=== PATIENT | male | born 1970 | race Two or more races ===

== ENCOUNTER 2024-07-17 12:22 | Emergency (ER) | payer OTHER ==
[~2024-07-17] VITALS: Ht 172.7 cm; Wt 69.3 kg
[2024-07-17 13:26] VITALS: BP 118/76; TEMP 97.8
--- NOTE | 2024-07-17 13:35 | DVH ---
EXAM: XY L SHOULDER 2+ VIEW XRAY CLINICAL HISTORY: pain COMPARISON: None TECHNIQUE: XY L SHOULDER 2+ VIEW XRAY Findings/Impression: 3 views of the left shoulder. There is no evidence of an acute fracture, dislocation, blastic, or lytic lesions. No radiopaque foreign bodies. No joint effusion or superficial soft tissue abnormalities.
--- NOTE | 2024-07-17 14:12 | ED.PDOC ---
History of Present Illness HPI Comments This is a 53-year-old male who comes in with chief complaint of left shoulder pain for approximately two weeks. 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 The patient states that he has been stretching and now he feels like he is having some mild numbness to the arms. The patient denies any vomiting or diarrhea. The symptoms seemed to have worsened so he came to the emergency department's for evaluation. Chief Complaint: Upper Extremity Time Seen by MD: 12:56 Primary Care Provider: adi Reviewed Notes: Nurses Notes, Medications, Allergies (No allergies to medications) Allergies: Coded Allergies: NO KNOWN ALLERGIES (Unverified , 07/17/24) Information Source: Patient, Spouse Mode of Arrival: Ambulatory Severity: Moderate Timing: Days Duration: Since onset Prehospital treatment: None Associated signs and symptoms Left shoulder pain Past Medical History PAST MEDICAL HISTORY: Gallstones Surgical History: Denies all surgeries Family History Family History: Family hx of DM Social History Smoker: Non-Smoker Alcohol: Occasionally Drugs: Denies Drug Use Lives In: Home Constitutional: denies: chills, diaphoresis, fatigue, fever, malaise, sweats, weakness, others EENTM: denies: blurred vision, double vision, ear bleeding, ear discharge, ear drainage, ear pain, ear ringing, eye pain, eye redness, hearing loss, mouth pain, mouth swelling, nasal discharge, nose bleeding, nose congestion, nose pain, photophobia, tearing, throat pain, throat swelling, voice changes, others Respiratory: denies: cough, hemoptysis, orthopnea, SOB at rest, shortness of breath, SOB with excertion, stridor, wheezing, others Cardiovascular: denies: chest pain, dizzy spells, diaphoresis, Dyspnea on exertion, edema, irregular heart beat, left arm pain, lightheadedness, pal pitations, PND, syncope, others Gastrointestinal: denies: abdomen distended, abdominal pain, blood streaked bowels, constipated, diarrhea, dysphagia, difficulty swallowing, hematemesis, melena, nausea, poor appetite, poor fluid intake, rectal bleeding, rectal pain, vomiting, others Genitourinary: denies: burning, dysuria, flank pain, frequency, hematuria, incontinence, penile discharge, penile sore, pain, testicle pain, testicle swelling, urgency, others Neurological: denies: dizziness, fainting, headache, left sided numbness, left sided weakness, numbness, paresthesia, pre-existing deficit, right sided numbness, right sided weakness, seizure, speech problems, tingling, tremors, weakness, others Musculoskeletal: reports: others (Left shoulder pain); denies: back pain, gout, joint pain, joint swelling, muscle pain, muscle stiffness, neck pain Integumetry: denies: bruises, change in color, change in hair/nails, dryness, laceration, lesions, lumps, rash, wounds, others Allergic/Immunocompromised: denies: Difficulty Healing, Frequent Infections, Hives, Itching, others Hematologic/Lymphatic: denies: anemia, blood clots, easy bleeding, easy bruising, swollen glands, others Endocrine: denies: excessive hunger, excessive sweating, excessive thirst, excessive urination, flushing, intolerance to cold, intolerance to heat, unexp lained weight gain, unexplained weight loss, others Psychiatric: denies: anxiety, bipolar disorder, depression, hopeless, panic disorder, schizophrenia, sleepless, suicidal, others Physical Exam General Appearance: No Apparent Distress HEENT: Normal ENT Inspection, Pharynx Normal, TMs Normal Neck: Full Range of Motion, Non-Tender, Normal, Normal Inspection Respiratory: Chest Non-Tender, Lungs Clear, No Accessory Muscle Use, No Respiratory Distress, Normal Breath Sounds Cardiovascular: No Edema, No JVD, No Murmur, No Gallop, Normal Peripheral Pulses, Regular Rate/Rhythm Breast Exam: Deferred Gastrointestinal: No Organomegaly, Non Tender, No Pulsatile Mass, Normal Bowel Sounds, Soft Genitalia: Deferred Pelvic: Deferred Rectal: Deferred Extremities: No calf tenderness, Normal capillary refill, No pedal edema Musculoskeletal : Location: Left Extremity Location: Shoulder Apperance: Limited ROM, Tenderness: Mild 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 Was a procedure done?: No Differential Dx Considerations may include: Fracture, strain, contusion X-Ray, Labs, Meds, VS Vital Signs Date Time Temp Pulse Resp B/P (MAP) Pulse Ox O2 Delivery O2 Flow Rate FiO2 07/17/24 13:26 89 18 98 Room Air 07/17/24 13:26 97.8 89 18 118/76 (90) 95 97.8 07/17/24 12:45 98.9 88 18 107/69 (82) 98 98.9 X-ray of the left shoulder is negative The patient was given discharged and told to follow up with his primary care doctor The patient will return to the emergency department's condition worsens. Images Reviewed?: Images reviewed and evaluated by me Time of 1ST Reevaluation: 14:17 Reevaluation 1ST: Improved Patient Education/Counseling: Diagnosis, Treatment, Prognosis, Need For Follow Up Family Education/Counseling: No Family Present Departure 1 Departure Time of Disposition: 14:17 Impression: Primary Impression: Left shoulder strain Qualified Codes: S46.912A - Strain of unspecified muscle, fascia and tendon at shoulder and upper arm level, left arm, initial encounter Disposition: HOME / SELF CARE / HOMELESS Condition: Fair Discharged With: Self Critical Care Note Critical Care Time?: No Stability Stability form required: No Heart Score Heart Score: Heart Score Response (Comments) Value History N/A 0 EKG N/A 0 Age N/A 0 Risk Factors N/A 0 Troponin N/A 0 Total 0 BARBARA MARQUEZ MD Jul 17, 2024 14:12
[2024-07-17 14:24] VITALS: PULSE 89; RESP 18; O2SAT 98
== END 2024-07-17 14:29 | disposition home or self-care (01) ==
LOC: ER 12:22
DX: S46.812A Strain of other muscles, fascia and tendons at shoulder and upper arm level, left arm, initial encounter (principal); X58.XXXA Exposure to other specified factors, initial encounter; Y93.89 Activity, other specified; Y92.89 Other specified places as the place of occurrence of the external cause; Y99.8 Other external cause status
CPT/HCPCS: 73030

== ENCOUNTER 2024-11-16 06:12 | Inpatient (IN) | payer MEDICAID ==
[2024-11-15 10:23] LABS: Hematocrit 43.7 % (41.0-53.0); Hemoglobin 14.9 g/dL (13.5-17.5); Mean Corpuscular Hemoglobin 31.1 pg (28.0-32.0); Mean Corpuscular Volume 90.9 fL (80.0-100.0); Nucleated Red Blood Cells % 0.1 %
[2024-11-15 10:31] LABS: Urine Protein, UAD TRACE (Negative)
[2024-11-15 10:36] LABS: INR 0.93 (0.9-1.15); Partial Thromboplastin Time 26.9 SEC (24.5-34.5); Prothrombin Time 9.9 sec (9.3-11.8)
[2024-11-15 11:11] LABS: Alanine Aminotransferase 14 U/L (7-40); Albumin 4.6 g/dL (3.2-4.8); Alkaline Phosphatase 47 U/L (46-116); Anion Gap 7 (5-15); BUN/Creatinine Ratio 13.1 (10.0-20.0); Bilirubin, Total 0.6 mg/dL (0.2-1.0); Blood Urea Nitrogen 14 mg/dL (9-23); Calcium 9.6 mg/dL (8.7-10.4); Carbon Dioxide 29 mmol/L (20-31); Chloride 106 mmol/L (98-107); Potassium 4.5 mmol/L (3.5-5.1); Sodium 142 mmol/L (136-145); Total Protein 7.0 g/dL (5.7-8.2)
[2024-11-15 11:14] LABS: Glucose 192 mg/dL (74-106)
[~2024-11-16] VITALS: Ht 172.7 cm; Wt 76.1 kg
[2024-11-16] MEDS: ceFAZolin 2 GM/D5W50ml 50 ML IV ONE (06:11)
[~2024-11-16 06:12] MED LIST: BACL20TA PO; CHOL20004 PO; FAMO-68 PO; METF-371 PO; PREG50CA PO; SIMV10TA20 PO; TRAM50TA2 PO; TRAZ-228 PO
[2024-11-16] MEDS ORDERED: fentaNYL CITRATE 100 MCG/2 ML VL ONE (07:19)
[2024-11-16] MEDS ORDERED: MIDAZOLAM HCL 2MG/2ML 2ml VIAL (1mg/ml) ONE (07:19)
[2024-11-16] MEDS ORDERED: PROPOFOL 10 MG/ML 20 ML IV ONE (07:20)
[2024-11-16] MEDS ORDERED: HYDROmorphone HCL 2 MG/ML VL/or syr ONE (07:20)
[2024-11-16] MEDS ORDERED: SUGAMMADEX 200mg/2ml Vial (100MG/ML) IV ONE (07:55)
[2024-11-16] MEDS ORDERED: ONDANSETRON HCL 4 MG/2 ML VIAL ONE (07:55)
[2024-11-16] MEDS ORDERED: MORPHINE SULFATE 4 MG/ML SYR/VIAL IV PRN (08:00)
[2024-11-16] MEDS: BUPIVACAINE 0.5% P/F INJ 10 ML VIAL ONE (08:00)
[2024-11-16] MEDS ORDERED: hydrALAZINE HCL 20 MG/ML VL IV PRN (08:00)
[2024-11-16] MEDS ORDERED: MIDAZOLAM HCL 2MG/2ML 2ml VIAL (1mg/ml) IV PRN (08:00)
[2024-11-16] MEDS: LIDOCAINE W/ EPINEPHRINE 1% 20ML VIAL ONE (08:01)
[2024-11-16 08:35] VITALS: PULSE 68; RESP 15; O2SAT 100
--- NOTE | 2024-11-16 08:51 | DVHOP ---
DATE OF SURGERY: 11/16/2024 PREOPERATIVE DIAGNOSES: Cholelithiasis, cholecystitis. POSTOPERATIVE DIAGNOSES: Cholelithiasis, cholecystitis. SURGEON: Bala Wray MD WAFER POLISHING WORKER: Gume Huitron NP ANESTHESIA: General endotracheal. ANESTHESIOLOGIST: Dr. Oconnell PROCEDURES: Laparoscopy, laparoscopic cholecystectomy DESCRIPTION OF PROCEDURE: Under general endotracheal anesthesia, the patient was prepped and draped and supraumbilical incision was made through which a Veress needle was inserted into the peritoneal cavity by the hanging drop technique in order to establish pneumoperitoneum to 15 mmHg pressure by insufflation with carbon dioxide. With the abdomen fully distended, the needle was removed and replaced with a 5 mm trocar port through which a 0-degree viewing laparoscope was inserted and under direct vision, additional 5-mm port and 10 mm ports were inserted. The 5 mm through the anterior axillary line at the level of the umbilicus and the 10 mm in the subxiphoid midline skin. Instrumentation was introduced. Laparoscopy was performed revealing no obvious unexpected pathology on serosal surfaces visualized. The gallbladder was covered with numerous adhesions, mostly omentum and in one area, the transverse colon serosa. A lysis of adhesions was accomplished. The gallbladder was massively elongated, enlarged, and apparently affected by chronic cholecystitis. The gallbladder was placed on tension cephalad. The cystic duct and cystic artery were meticulously dissected from surrounding adipose tissues and fibrous tissues and following circumferential dissection and skeletonization of the cystic duct and cystic artery, these structures were traced into the hepatocystic triangle so as to minimize the potential for inadvertent injury to the common bile duct. The cystic duct and cystic artery were then divided close to the gallbladder to minimize the potential for inadvertent injury to the common bile duct. Following division of the cystic duct and cystic artery between metallic clips, the gallbladder was resected from its intrahepatic position with slight denuding of the hepatic parenchyma due to the intrahepatic nature of the gallbladder. The fully mobilized gallbladder was then retrieved from the peritoneal cavity through the subxiphoid 10 mm port site. The right upper quadrant was profusely irrigated. Irrigant was aspirated. Hemostasis was meticulously inspected and accomplished. The hemostasis appeared to be complete and total. At the termination of the procedure, there was no evidence of bleeding from either the liver bed or from the port sites. A 10 mm Barry-Ruiz drain was placed underneath the right lobe of the liver and exteriorized through the 3 mm port site on the right flank, secured with a 2-0 nylon suture. Instrumentation was withdrawn. Pneumoperitoneum was evacuated. The fascial defect was closed using 0 Vicryl. Wounds were approximated using Monocryl sutures, Dermabond glue, and Steri-Strips. The patient remained stable throughout the procedure, left the operating room following an accurate needle and sponge counts. His , Esperanza, was thoroughly informed in the waiting area. MD VANGIE Neville/ESTRELLA TID: [id number] RECEIPT: [id number]
[2024-11-16] MEDS: HYDROmorphone HCL 2 MG/ML VL/or syr IV PRN ×2 (09:07→15:09)
[2024-11-16] MEDS: SUCCINYLCHOLINE CHLORIDE 20 MG/ML 10ML VIAL IV ONE (09:08)
[2024-11-16] MEDS: ACCU-CHEK COMFORT CURVE STRIP VI ONE (09:17)
[2024-11-16] MEDS ORDERED: NITROGLYCERIN 0.4 MG SL TAB SL PRN (09:30)
[2024-11-16] MEDS ORDERED: DEXTROSE (50%) 50ML SYRG IV PRN (09:30)
[2024-11-16] MEDS ORDERED: MORPHINE SULFATE INJ 2 MG/ml SYRG IV PRN (09:30)
[2024-11-16] MEDS: PANTOPRAZOLE 40 MG/10 ML VIAL INJ IV SCH (09:30)
[2024-11-16] MEDS: D5W/SOD CHL 0.45%/KCL 20MEQ 1,000 ML IV SCH (10:00)
[2024-11-16] MEDS: ACETAMINOPHEN IV 1000 MG/100ML (10MG/ML) IV ONE (10:30)
[2024-11-16] MEDS: ACETAMINOPHEN IV 100 ML IV ONE (10:42)
--- NOTE | 2024-11-16 10:54 | DVHHP2 ---
Review of Systems Allergies: Coded Allergies: NO KNOWN ALLERGIES (Unverified , 07/17/24) Medications Current Medications Medications Dose Ordered Sig/Concetta Route Start Time Stop Time Status Last Admin Dose Admin Morphine Sulfate 2 mg Q4H PRN IV 11/16/24 08:00 11/16/24 12:01 Potassium Chloride/Dextrose/ Sod Cl 1,000 ml @ 120 mls/hr Q8H20M IV 11/16/24 08:30 11/16/24 10:00 120 MLS/HR Cefazolin Sodium 50 ml @ 100 mls/hr Q8HR IV 11/16/24 14:00 Hydromorphone HCl 1 mg Q3HPRN PRN IV 11/16/24 08:30 Acetaminophen/ Codeine Phosphate 1 tab Q4HP PRN PO 11/16/24 08:30 Pantoprazole Sodium 40 mg DAILY IV 11/16/24 10:00 11/16/24 09:30 40 MG Ondansetron HCl 4 mg Q4HPRN PRN IV 11/16/24 08:30 Diagnostic Test (Pha) 1 strip ACHS 11/16/24 11:30 Insulin Human Regular HS SC 11/16/24 22:00 Insulin Human Regular AC SC 11/16/24 11:30 Dextrose 50 ml UD PRN IV 11/16/24 09:30 Nitroglycerin 0.4 mg Q5MINP PRN SL 11/16/24 09:30 Morphine Sulfate 2 mg Q30M PRN IV 11/16/24 09:30 Exam Vital Signs Vital Signs Date Time Temp Pulse Resp B/P (MAP) Pulse Ox O2 Delivery O2 Flow Rate FiO2 11/16/24 09:27 74 13 129/83 11/16/24 08:35 100 Room Air 0 11/16/24 08:35 100 11/16/24 08:35 97.4 97.4 Labs/Xrays Labs Test 11/16/24 09:15 11/15/24 10:15 Range/Units POC Glucose 232 H 70-106 mg/dl White Blood Count 7.2 4.4-10.8 10^3/uL Red Blood Count 4.80 4.5-5.90 10^6/uL Hemoglobin 14.9 13.5-17.5 g/dL Hematocrit 43.7 41.0-53.0 % Mean Corpuscular Volume 90.9 80.0-100.0 fL Mean Corpuscular Hemoglobin 31.1 28.0-32.0 pg Mean Corpuscular Hemoglobin Concent 34.1 32.0-36.0 g/dL Red Cell Distribution Width 13.1 11.8-14.3 % Platelet Count 235 140-450 10^3/uL Mean Platelet Volume 7.9 6.9-10.8 fL Neutrophils (%) (Auto) 58.9 37.0-80.0 % Lymphocytes (%) (Auto) 30.8 10.0-50.0 % Monocytes (%) (Auto) 8.8 0.0-12.0 % Eosinophils (%) (Auto) 0.7 0.0-7.0 % Basophils (%) (Auto) 0.8 0.0-2.0 % Neutrophils # (Auto) 4.2 1.6-8.6 10 ^3/uL Lymphocytes # (Auto) 2.2 0.4-5.4 10 ^3/uL Monocytes # (Auto) 0.6 0-1.3 10 ^3/uL Eosinophils # (Auto) 0.1 0-0.8 10 ^3/uL Basophils # (Auto) 0.1 0-0.2 10 ^3/uL Nucleated Red Blood Cells 0.1 % Prothrombin Time 9.9 9.3-11.8 sec Prothrombin Time INR 0.93 0.9-1.15 Activated Partial Thromboplast Time 26.9 24.5-34.5 SEC Urine Color Yellow Yellow Urine Clarity Clear Clear Urine pH 5.5 5.0-9.0 Urine Specific [place] 1.027 1.001-1.035 Urine Protein Trace H Negative Urine Ketones Negative Negative Urine Blood Negative Negative /uL Urine Nitrite Negative Negative Urine Bilirubin Negative Negative Urine Urobilinogen Normal Negative mg/dL Urine Leukocyte Esterase Negative Negative /uL Urine RBC <1 0 - 3 /hpf Urine Microscopic WBC 2 0-3 /HPF Urine Squamous Epithelial Cells None seen <5 /hpf Urine Bacteria None seen None Seen /hpf Urine Mucus Few None Seen Urine Glucose 3+ H Normal mg/dL Sodium Level 142 136-145 mmol/L Potassium Level 4.5 3.5-5.1 mmol/L Chloride Level 106 98-107 mmol/L Carbon Dioxide Level 29 20-31 mmol/L Anion Gap 7 5-15 Blood Urea Nitrogen 14 9-23 mg/dL Creatinine 1.07 0.700-1.30 mg/dL Glomerular Filtration Rate Calc 83 >90 mL/min BUN/Creatinine Ratio 13.1 10.0-20.0 Serum Glucose 192 H 74-106 mg/dL Calcium Level 9.6 8.7-10.4 mg/dL Total Bilirubin 0.6 0.2-1.0 mg/dL Aspartate Amino Transferase (AST) 14 13-40 U/L Alanine Aminotransferase (ALT) 14 7-40 U/L Alkaline Phosphatase 47 46-116 U/L Total Protein 7.0 5.7-8.2 g/dL Albumin 4.6 3.2-4.8 g/dL SEPSIS Sepsis Screen Physician Orders Oxygen By Face Mask (11/16/24 07:49) Oxygen By Nasal Cannula (11/16/24 07:49) Forest And Conservation Worker (11/16/24 07:49) Notify Anesth. For Changes: (11/16/24 07:49) Pulse Ox Assessment (11/16/24 07:49) May Have Head Of Bed Up (11/16/24 07:49) Continue Present Iv (11/16/24 07:49) Follow Iv With Surgeon Orders (11/16/24 07:49) Discharge To Room Per Criteria (11/16/24 07:49) Morphine Sulfate Injection (11/16/24 08:00) To Pacu For Recovery (11/16/24 08:20) Oxygen Via Cool Mist Mask (11/16/24 08:20) Incentive Spirometry Q 1hr (11/16/24 08:20) Abdominal Binder (11/16/24 08:20) Jasbir To Bulb Suction (11/16/24 08:20) Clear Liq Diet (11/16/24 Breakfast) Sequential Compression Device (11/16/24 08:20) Page Hospitalist For Admission (11/16/24 08:20) Bilirubin, Total (11/17/24 04:00) D5w/Sod Chl 0.45%/Kcl 20meq (11/16/24 08:30) Cefazolin 1gm/50ml (Ancef) (11/16/24 14:00) Hydromorphone Injection (Dilaudid Inject (11/16/24 08:30) Acetaminophen/Codeine Tablet (Tylenol W/ (11/16/24 08:30) Pantoprazole (Protonix) (11/16/24 10:00) Ondansetron Hcl (Zofran) (11/16/24 08:30) Glucose Blood (Accu-Chek Comfort Curve T (11/16/24 11:30) Insulin R (Human) (Insulin R) (11/16/24 22:00) Insulin R (Human) (Insulin R) (11/16/24 11:30) Dextrose 50% Syringe (11/16/24 09:30) Admit (11/16/24 09:16) Oxygen By Nasal Cannula (11/16/24 09:16) Nitroglycerin Sublingual (Ntrostat Subli (11/16/24 09:30) Morphine Sulfate Injection (11/16/24 09:30) Stat Ekg For Chest Pain (11/16/24 09:16) Notify Of Changes From Base (11/16/24 09:16) Net Applications Developer For 24 Hours (11/16/24 09:16) Emergency Dysrhythmia Protocol (11/16/24 09:16) Rhythm Strips Once Every Shift (11/16/24 09:16) Vital Signs Date Time Temp Pulse Resp B/P (MAP) Pulse Ox O2 Delivery O2 Flow Rate FiO2 11/16/24 09:27 74 13 129/83 11/16/24 09:07 73 12 142/86 11/16/24 08:35 68 15 100 Room Air 0 11/16/24 08:35 Room Air 0 100 11/16/24 08:35 97.4 68 15 134/85 (101) 100 97.4 11/16/24 06:20 98.1 70 18 139/91 (107) 99 98.1 Medications Medications Dose Ordered Sig/Concetta Route Start Time Stop Time Status Last Admin Dose Admin Acetaminophen 1,000 mg ONCE ONCE IV 11/16/24 10:30 11/16/24 10:40 DC 11/16/24 10:30 1,000 MG Bupivacaine HCl 20 ml STK-MED ONCE .ROUTE 11/16/24 06:52 11/16/24 06:50 DC 11/16/24 08:00 20 ML Diagnostic Test (Pha) 1 strip ONCE ONCE 11/16/24 08:00 11/16/24 08:21 DC 11/16/24 09:17 1 STRIP Hydromorphone HCl 0.5 mg Q10M PRN IV 11/16/24 08:00 11/16/24 08:41 DC 11/16/24 09:27 0.5 MG Lidocaine/ Epinephrine 20 ml STK-MED ONCE .ROUTE 11/16/24 06:52 11/16/24 06:51 DC 11/16/24 08:01 20 ML Pantoprazole Sodium 40 mg DAILY IV 11/16/24 10:00 11/16/24 09:30 40 MG Potassium Chloride/Dextrose/ Sod Cl 1,000 ml @ 120 mls/hr Q8H20M IV 11/16/24 08:30 11/16/24 10:00 120 MLS/HR Assessment/Plan Assessment/Plan see dictated note Plan discussed with: Patient My Orders Orders - TOMI STOCK MD Procedure Category Date Status Time Glucose Blood PHA 11/16/24 In Process (Accu-Chek Comfort 11:30 Insulin R (Human) PHA 11/16/24 In Process (Insulin R) 22:00 Insulin R (Human) PHA 11/16/24 In Process (Insulin R) 11:30 Dextrose 50% Syringe PHA 11/16/24 In Process 09:30 Admit ADMIT 11/16/24 Transmitted 09:16 Oxygen By Nasal RT 11/16/24 Transmitted Cannula 09:16 Nitroglycerin [facility] 11/16/24 In Process Sublingual (Ntrostat 09:30 Morphine Sulfate [facility] 11/16/24 In Process Injection 09:30 Stat Ekg For Chest [facility] 11/16/24 In Process Pain 09:16 Notify Md Of Changes [facility] 11/16/24 In Process From Base 09:16 Net Applications Developer For [facility] 11/16/24 In Process 24 Hours 09:16 Emergency Dysrhythmia [facility] 11/16/24 In Process Protocol 09:16 Rhythm Strips Once [facility] 11/16/24 In Process Every Shift 09:16 Date of Service: Nov 16, 2024 Billing Provider: TOMI STOCK MD Common Visit Codes: [id number] INP/OBS CARE (HIGH) Secondary Visit Codes: [id number] CARE PLAN 30 MINUTES TOMI STOCK MD Nov 16, 2024 10:54
--- NOTE | 2024-11-16 11:08 | DVHHP ---
HISTORY OF PRESENT ILLNESS: The patient is a 53-year-old gentleman who was admitted after he underwent laparoscopic cholecystectomy for cholelithiasis and chronic cholecystitis. The patient at this time denies any significant abdominal pain. No chest pain. No shortness of breath. No nausea or vomiting. REVIEW OF SYSTEMS: Review of rest of systems otherwise currently negative. PAST MEDICAL HISTORY: Significant for diabetes mellitus and anxiety. MEDICATIONS: He takes metformin, Lyrica, tramadol, trazodone, and baclofen. ALLERGIES: No known drug allergies. SOCIAL HISTORY: Denies smoking or alcohol. He lives at home with his family. FAMILY HISTORY: Negative. PHYSICAL EXAMINATION: GENERAL: The patient is awake and alert. VITAL SIGNS: Temperature 97.4, pulse 73 per minute, blood pressure 142/86. SHEENT: Unremarkable. NECK: There is no JVD, no pedal edema. LUNGS: Equal bilaterally. No added sounds. CARDIOVASCULAR: S1 and S2 is regular without murmurs. ABDOMEN: Soft. Bowel sounds are hypoactive. There is a QUINTIN drain in place. NEUROLOGIC: Nonfocal. MUSCULOSKELETAL: Normal. ASSESSMENT AND PLAN: * Diabetes mellitus, for which the patient is placed on sliding scale insulin. * Anxiety. * Peripheral neuropathy. * Status post laparoscopic cholecystectomy for cholelithiasis and chronic cholecystitis. * He will be placed on IV fluids and a clear liquid diet. * Advanced care planning. The patient is a full code-Time spent was 16 minutes. MD SIMONE Arellano/BENJAMIN TID: [id number] RECEIPT: [id number] MTD
[2024-11-16] MEDS: InsuLIN REG 1unit/0.01ml Soln (100units/ml) SC SCH ×2 (11:30→21:54)
[2024-11-16] MEDS: ACCU-CHEK COMFORT CURVE STRIP VI SCH (11:30)
[2024-11-16] MEDS: ACETAMINOPHEN/CODEINE#3 (300/30mg) TAB PO PRN (12:37)
[2024-11-16 12:52] VITALS: BP 160/96; PULSE 90; RESP 20; TEMP 97.8; O2SAT 98
[2024-11-16] MEDS: ONDANSETRON HCL 4 MG/2 ML VIAL IV PRN (13:48)
[2024-11-16] MEDS: BACLOFEN 10 MG TAB PO SCH (13:49)
[2024-11-16] MEDS: ceFAZolin 1GM/50ML 50 ML IV SCH (13:49)
[2024-11-16] MEDS: PREGABALIN 25 MG CAP PO ONE (13:49)
[2024-11-16] MEDS: SODIUM CHLORIDE 0.9% 1,000 ML IV SCH (13:50)
[2024-11-16 14:31] VITALS: BP 160/96; PULSE 90; RESP 16; TEMP 97.6; O2SAT 98
[2024-11-16] MEDS: ONDANSETRON HCL 4 MG/2 ML VIAL IV ONE (15:30)
[2024-11-16 16:58] VITALS: BP 126/84; PULSE 85; RESP 20; TEMP 97.7; O2SAT 97
[2024-11-16] MEDS: PROCHLORPERAZINE EDISYLATE 5 MG/ML 2ML VIAL IV PRN (17:34)
[2024-11-16] MEDS: diphenhdrAMINE HCL 50 MG/1 ML VL IV PRN (17:34)
[2024-11-16 20:00] VITALS: PULSE 75; RESP 17; O2SAT 95
[2024-11-16 21:00] VITALS: BP 109/73; PULSE 75; RESP 17; TEMP 97.8; O2SAT 95
[2024-11-16] MEDS: PREGABALIN 25 MG CAP PO SCH (21:35)
[2024-11-17 01:00] VITALS: BP 124/85; PULSE 72; RESP 17; TEMP 97.9; O2SAT 98
[2024-11-17 05:00] VITALS: BP 105/66; PULSE 71; RESP 18; TEMP 97.7; O2SAT 97
[2024-11-17 07:16] LABS: Hematocrit 43.2 % (41.0-53.0); Hemoglobin 14.5 g/dL (13.5-17.5); Mean Corpuscular Hemoglobin 31.0 pg (28.0-32.0); Mean Corpuscular Volume 92.0 fL (80.0-100.0); Nucleated Red Blood Cells % 0.1 %
[2024-11-17 07:29] LABS: Albumin 4.3 g/dL (3.2-4.8); Alkaline Phosphatase 54 U/L (46-116); Anion Gap 10 (5-15); BUN/Creatinine Ratio 10.7 (10.0-20.0); Blood Urea Nitrogen 11 mg/dL (9-23); Calcium 9.8 mg/dL (8.7-10.4); Carbon Dioxide 27 mmol/L (20-31); Chloride 105 mmol/L (98-107); Glucose 92 mg/dL (74-106); Potassium 3.6 mmol/L (3.5-5.1); Sodium 142 mmol/L (136-145); Total Protein 6.5 g/dL (5.7-8.2)
[2024-11-17 07:30] LABS: Bilirubin, Total 0.8 mg/dL (0.2-1.0)
[2024-11-17 07:35] LABS: Alanine Aminotransferase 212 U/L (7-40)
[2024-11-17 08:10] VITALS: O2SAT 95
[2024-11-17 09:00] VITALS: BP 115/75; PULSE 71; RESP 18; TEMP 98.1; O2SAT 99
--- NOTE | 2024-11-17 10:09 | DVHPN2 ---
Progress Note Date Seen: Nov 17, 2024 Medical Necessity Reason Pt with a Central, PICC or Fol: No Objective vital signs Vital Sign Date Time Temp Pulse Resp B/P (MAP) Pulse Ox O2 Delivery O2 Flow Rate FiO2 11/17/24 05:00 97.7 71 18 105/66 (79) 97 97.7 11/16/24 20:00 Room Air* 0 21 Total Intake and Output 11/16/24 11/16/24 11/17/24 15:00 23:00 07:00 Intake Total 50 ml 500 ml 380 ml Output Total 80 ml 950 ml 850 ml Balance -30 ml -450 ml -470 ml medications Current Medications Medications Dose Ordered Sig/Concetta Route Start Time Stop Time Status Last Admin Dose Admin Cefazolin Sodium 50 ml @ 100 mls/hr Q8HR IV 11/16/24 14:00 11/16/24 13:49 100 MLS/HR Hydromorphone HCl 1 mg Q3HPRN PRN IV 11/16/24 08:30 11/16/24 18:26 1 MG Acetaminophen/ Codeine Phosphate 1 tab Q4HP PRN PO 11/16/24 08:30 11/16/24 12:37 1 TAB Pantoprazole Sodium 40 mg DAILY IV 11/16/24 10:00 11/16/24 09:30 40 MG Ondansetron HCl 4 mg Q4HPRN PRN IV 11/16/24 08:30 Hold 11/16/24 13:48 4 MG Diagnostic Test (Pha) 1 strip ACHS 11/16/24 11:30 11/17/24 06:00 1 STRIP Insulin Human Regular HS SC 11/16/24 22:00 11/16/24 21:54 3 UNITS Insulin Human Regular AC SC 11/16/24 11:30 11/16/24 16:58 9 UNITS Dextrose 50 ml UD PRN IV 11/16/24 09:30 Nitroglycerin 0.4 mg Q5MINP PRN SL 11/16/24 09:30 Morphine Sulfate 2 mg Q30M PRN IV 11/16/24 09:30 Sodium Chloride 1,000 ml @ 100 mls/hr Q10H IV 11/16/24 11:00 11/17/24 06:09 100 MLS/HR Pregabalin 50 mg BID PO 11/16/24 22:00 11/16/24 21:35 50 MG Baclofen 10 mg TID PO 11/16/24 14:00 11/17/24 06:08 10 MG Diphenhydramine HCl 25 mg Q4HP PRN IV 11/16/24 17:15 11/16/24 17:34 25 MG Prochlorperazine Edisylate 10 mg Q4HPRN PRN IV 11/16/24 17:15 11/16/24 17:34 10 MG laboratory and microbiology Laboratory Tests 11/17/24 06:24 Test 11/17/24 06:24 Range/Units Serum Glucose 92 # 74-106 mg/dL Problem List/Assessment/Plan Problem List/Assessment/Plan 11/17/24 alert,oriented,cooperative, feels well, ambulated, tolerating po liquids, will advance diet , wounds clean and well approximated, abdomen non distended m\appropriately tender,Bilirubin nl. if tolerating po solids may be discharged. Plan discussed with: Patient BELLE HUNTER MD Nov 17, 2024 10:09
--- NOTE | 2024-11-17 14:52 | DVHDS2 ---
Discharge Summary Date of Admission Nov 16, 2024 at 09:16 Date of Discharge: Nov 17, 2024 Labs/Diagnostic Data: Laboratory Results Test 11/17/24 11:03 11/17/24 06:24 11/15/24 10:15 POC Glucose 142 mg/dl (70-106) White Blood Count 11.0 10^3/uL (4.4-10.8) Red Blood Count 4.69 10^6/uL (4.5-5.90) Hemoglobin 14.5 g/dL (13.5-17.5) Hematocrit 43.2 % (41.0-53.0) Mean Corpuscular Volume 92.0 fL (80.0-100.0) Mean Corpuscular Hemoglobin 31.0 pg (28.0-32.0) Mean Corpuscular Hemoglobin Concent 33.7 g/dL (32.0-36.0) Red Cell Distribution Width 13.1 % (11.8-14.3) Platelet Count 239 10^3/uL (140-450) Mean Platelet Volume 8.7 fL (6.9-10.8) Neutrophils (%) (Auto) 74.5 % (37.0-80.0) Lymphocytes (%) (Auto) 19.7 % (10.0-50.0) Monocytes (%) (Auto) 5.5 % (0.0-12.0) Eosinophils (%) (Auto) 0.2 % (0.0-7.0) Basophils (%) (Auto) 0.1 % (0.0-2.0) Neutrophils # (Auto) 8.2 10 ^3/uL (1.6-8.6) Lymphocytes # (Auto) 2.2 10 ^3/uL (0.4-5.4) Monocytes # (Auto) 0.6 10 ^3/uL (0-1.3) Eosinophils # (Auto) 0 10 ^3/uL (0-0.8) Basophils # (Auto) 0 10 ^3/uL (0-0.2) Nucleated Red Blood Cells 0.1 % Sodium Level 142 mmol/L (136-145) Potassium Level 3.6 mmol/L (3.5-5.1) Chloride Level 105 mmol/L (98-107) Carbon Dioxide Level 27 mmol/L (20-31) Anion Gap 10 (5-15) Blood Urea Nitrogen 11 mg/dL (9-23) Creatinine 1.03 mg/dL (0.700-1.30) Glomerular Filtration Rate Calc 86 mL/min (>90) BUN/Creatinine Ratio 10.7 (10.0-20.0) Serum Glucose 92 mg/dL (74-106) Calcium Level 9.8 mg/dL (8.7-10.4) Total Bilirubin 0.8 mg/dL (0.2-1.0) Aspartate Amino Transferase (AST) 129 U/L (13-40) Alanine Aminotransferase (ALT) 212 U/L (7-40) Alkaline Phosphatase 54 U/L (46-116) Total Protein 6.5 g/dL (5.7-8.2) Albumin 4.3 g/dL (3.2-4.8) Prothrombin Time 9.9 sec (9.3-11.8) Prothrombin Time INR 0.93 (0.9-1.15) Activated Partial Thromboplast Time 26.9 SEC (24.5-34.5) Urine Color Yellow (Yellow) Urine Clarity Clear (Clear) Urine pH 5.5 (5.0-9.0) Urine Specific [place] 1.027 (1.001-1.035) Urine Protein Trace (Negative) Urine Ketones Negative (Negative) Urine Blood Negative /uL (Negative) Urine Nitrite Negative (Negative) Urine Bilirubin Negative (Negative) Urine Urobilinogen Normal mg/dL (Negative) Urine Leukocyte Esterase Negative /uL (Negative) Urine RBC <1 /hpf (0 - 3) Urine Microscopic WBC 2 /HPF (0-3) Urine Squamous Epithelial Cells None seen /hpf (<5) Urine Bacteria None seen /hpf (None Seen) Urine Mucus Few (None Seen) Urine Glucose 3+ mg/dL (Normal) Other Laboratory Tests 11/17/24 06:24 Brief Hx & Hospital Course: see dictated note Condition at Discharge: Good Final Diagnosis/Problems List lap inna Discharge Disposition: Home Discharge Instruct/Medications Diet: Consistent carbohydrate Activity: No Restrictions, As Tolerated Follow Up/Referral: schedule appt with dr Wray in 1 wk Medications: script to pharmacy resume home meds, hold atorvastatin for 1 wk cmp in 1 wk Scheduled Baclofen (Baclofen), 10 MG PO TID, (Reported) Cholecalciferol (D3), 50 MCG PO DAILY, (Reported) Famotidine (Gnp Acid Controls Engineer Maximum), 40 MG PO DAILY, (Reported) Metformin Hydrochloride (Metformin Hcl), 850 MG PO DAILY, (Reported) Pregabalin (Lyrica), 1 CAP PO TID, (Reported) Simvastatin (Simvastatin), 1 TAB PO DAILY, (Reported) Tramadol Hcl (Tramadol Hcl), 50 MG PO PRN, (Reported) Trazodone Hcl (Trazodone Hcl), 50 MG PO HS, (Reported) Discharge Statement: "Patient was advised to return to the ER or call 911 if any headaches, dizziness, shortness of breath, chest pain, abdominal pain, bleeding, fevers, or worsening of medical condition. Patient was counseled about treatment plan, medications, possible side effects, patientverbalized understanding. All questions were answered to the best of my ability. This discharge took greater then 30 minutes in planning, reviewing documentation, counseling the patient, and discussing with other team members." ASSESSMENT ASSESSMENT Assessment serena keith Date of Service: Nov 17, 2024 Billing Provider: TOMI STOCK MD Common Visit Codes: 69263-NYT/OBS DISCH DAY >30min TOMI STOCK MD Nov 17, 2024 14:52
[2024-11-17] MEDS ORDERED: TRAM-626 PO (15:03)
[2024-11-17] MEDS ORDERED: DOCU-94 PO (15:03)
[2024-11-17] MEDS ORDERED: LEVO500T91 PO (15:03)
--- NOTE | 2024-11-17 15:49 | DVHDS ---
DATE OF DISCHARGE: 11/17/2024 The patient is a 54-year-old gentleman who was admitted after he underwent laparoscopic cholecystectomy for cholelithiasis and chronic cholecystitis. The patient has history of diabetes and anxiety. HOSPITAL COURSE: The patient did well postoperatively. The patient had mild elevation in AST and ALT. The patient has now been cleared for discharge by Dr. Wray. He will be discharged home with a QUINTIN drain in place to resume his home medications as well as to be on Colace p.r.n. for constipation, Levaquin 500 mg daily for five days, and tramadol p.r.n. for pain. He will have a repeat CMP done in one week and will hold his simvastatin for one week. He will follow up with Dr. Wray in one to two weeks. FINAL DIAGNOSES: * Diabetes mellitus. * Anxiety. * Peripheral neuropathy. * Transaminitis. * Status post laparoscopic cholecystectomy for cholelithiasis and chronic cholecystitis. Time spent in discharge planning and review of plan with the patient and nursing was 37 minutes. MD SIMONE Arellano/AYDEE TID: [id number] RECEIPT: [id number]
[2024-11-17 16:39] VITALS: BP 126/80; PULSE 75; RESP 18; TEMP 98.1; O2SAT 98
== END 2024-11-17 16:25 | disposition home or self-care (01) | DRG 263 ==
LOC: SUR 06:12 → OVERFLOW 09:16 → WEST WING 12:52
PROVIDERS: ADMIT Internal Medicine; ATTEND Internal Medicine
PROC: 0DNW4ZZ Release Peritoneum, Percutaneous Endoscopic Approach (ICD-10-PCS; 2024-11-16)
PROC: 0FT44ZZ Resection of Gallbladder, Percutaneous Endoscopic Approach (ICD-10-PCS; principal; 2024-11-16 07:22)
DX: K80.10 Calculus of gallbladder with chronic cholecystitis without obstruction (principal); E11.40 Type 2 diabetes mellitus with diabetic neuropathy, unspecified; F41.9 Anxiety disorder, unspecified; R74.01 Elevation of levels of liver transaminase levels; K66.0 Peritoneal adhesions (postprocedural) (postinfection)
CPT/HCPCS: 36415; 80053; 81001; 82247; 82962; 85025; 85610; 85730; 86850; 86900; 86901; G0378; J0131; J0330; J1100; J1815; J2250; J2405; J2470; J2704; J3490

== ENCOUNTER 2024-12-07 00:59 | Inpatient (IN) | payer MEDICAID ==
[~2024-12-07] VITALS: Ht 172.7 cm; Wt 72.6 kg
[~2024-12-07 00:59] MED LIST changes: +DOCU-94 PO; +LEVO500T91 PO; +TRAM-626 PO
--- NOTE | 2024-12-07 01:40 | ED.PDOC ---
GI ASSESSMENT HPI Comments 54-year-old male with a history of gallstones sputum by ambulance with a chief complaint of diffuse abdominal pain. Per EMS patient had a laparoscopic cholecystectomy done, at [facility] proximally [address] Roach, QUINTIN drain removed yesterday. Patient states of abdominal pain since having his QUINTIN drain removed, patient notes if going to [facility] and was Transferred to [facility] due to his surgery being performed here. Patient had a abdomen pelvic CT performed at [facility] and it was remarkable for suspected bile leak. Patient was started on zosyn. Patient denies any nausea, vomiting, diarrhea, back pain, chest pain, or any other associated symptom, modifying at this time. PHYSICAL EXAM: General: Awake, alert and oriented. No acute distress. Skin: Skin in warm, dry and intact without rashes or lesions. HEENT: The head is normocephalic and atraumatic. Conjunctivae are clear without exudates or hemorrhage. Sclera is non-icteric. Neck: Normal range of motion. No JVD. Cardiac: Regular rate Respiratory: No signs of respiratory distress. No Stridor. Abdominal: Abdomen is not distention. Surgical incisions healing well Extremities: Upper and lower extremities are atraumatic in appearance without deformity. Neurological: The patient is awake, alert and oriented to person, place, and time with normal speech. Speech is clear. There is no facial asymmetry. Psychiatric: Appropriate mood and affect. Good judgement and insight. REVIEW OF SYSTEMS: General: No fever, no chills, or fatigue HEENT: No sore throat, no earache, no congestion, no neck pain. Cardiac: No chest pain. No palpitations. Lungs: No shortness of breath, no cough. GI: No nausea, no vomiting, no diarrhea, no constipation, +abdominal pain : No dysuria, frequency, or urgency. No hematuria. Musculoskeletal: No joint pain , no joint swelling, no extremity edema. Skin: No rash, no itching. Neuro: No headache, no dizziness, no weakness Chief Complaint: Abdominal Pain Time Seen by MD: 01:35 Primary Care Provider: adi Reviewed Notes: Nurses Notes, Farm Equipment Mechanic Apprentice Notes, Medications, Allergies Allergies: Coded Allergies: Cefazolin (Verified Allergy, Mild, 11/17/24) ITCHING AND BURNING THROUGHOUT BODY Home Meds Active Scripts Tramadol HCl (Tramadol HCl) 50 Mg Tab, 50 MG PO TIDP PRN for 6 Days, #18 TAB Prov:TOMI STOCK MD 11/17/24 Docusate Sodium (Colace) 100 Mg Cap, 1 CAP PO BID PRN for 15 Days, #30 CAP Prov:TOMI STOCK MD 11/17/24 Levofloxacin Hemihydrate (LEVAQUIN 500 MG) 500 Mg Tab, 500 MG PO DAILY for 5 Days, #5 TAB Prov:TOMI STOCK MD 11/17/24 Reported Medications Tramadol Hcl (Tramadol Hcl) 50 Mg Tab, 50 MG PO PRN, TAB 11/15/24 Simvastatin (Simvastatin) 10 Mg Tab, 1 TAB PO DAILY, #90 TAB 3 Refills 11/15/24 Baclofen (Baclofen) 20 Mg Tab, 10 MG PO TID, TAB 11/15/24 Cholecalciferol (D3) 50 Mcg Cap, 50 MCG PO DAILY, CAP 11/15/24 Famotidine (Gnp Acid Magnetic Prospecting Supervisor Maximum) 20 Mg Tab, 40 MG PO DAILY, TAB 11/15/24 Pregabalin (Lyrica) 50 Mg Cap, 1 CAP PO TID, #90 CAP 11/15/24 Trazodone Hcl (Trazodone Hcl) 100 Mg Tab, 50 MG PO HS, TAB 11/15/24 Metformin Hydrochloride (Metformin Hcl) 850 Mg Tab, 850 MG PO DAILY, TAB 11/15/24 Information Source: Patient, Emergency Med Personnel Mode of Arrival: EMS Timing: Weeks Duration: Intermittent Prehospital treatment: 12 Lead EKG, Accucheck, Art Display Maker Quality: Aching Vomitus: None Stool: Normal Severity: Mild Recent: None Recent Hx of: Abdominal Operations Pain Location: Diffuse Associated sign and symptoms: Abdominal Pain Past Medical History PAST MEDICAL HISTORY: Gallstones Surgical History: Denies all surgeries Family History Family History: Family hx of DM Social History Smoker: Non-Smoker Alcohol: Occasionally Drugs: Denies Drug Use Lives In: Home Was a procedure done? Was a procedure done?: No GI differential Dx Differential Diagnosis: Appendicitis, Angina/KS, Bowel Obstruction, Cholan gitis, Cholecystitis, Constipation, Gastritis/PUD, Gastroenteritis, Inflammatory BD, Ischemic Bowel, Pancreatitis, Urinary Obstruction, UTI, Urolithiasis, Electrolyte Imbalance, Food Poisoning, Stress Ulcer, Kidney Stone X-Ray, Labs, Meds, VS Vital Signs Date Time Temp Pulse Resp B/P (MAP) Pulse Ox O2 Delivery O2 Flow Rate FiO2 12/07/24 06:32 76 12 123/72 12/07/24 06:02 92 16 132/74 12/07/24 05:50 98.0 92 18 132/74 (93) 96 98.0 12/07/24 01:12 98.6 83 16 115/69 97 98.6 Lab Test 12/07/24 01:46 Range/Units White Blood Count 8.9 4.4-10.8 10^3/uL Red Blood Count 4.54 4.5-5.90 10^6/uL Hemoglobin 14.2 13.5-17.5 g/dL Hematocrit 41.1 41.0-53.0 % Mean Corpuscular Volume 90.5 80.0-100.0 fL Mean Corpuscular Hemoglobin 31.3 28.0-32.0 pg Mean Corpuscular Hemoglobin Concent 34.5 32.0-36.0 g/dL Red Cell Distribution Width 13.3 11.8-14.3 % Platelet Count 320 140-450 10^3/uL Mean Platelet Volume 7.3 6.9-10.8 fL Neutrophils (%) (Auto) 79.6 37.0-80.0 % Lymphocytes (%) (Auto) 14.2 10.0-50.0 % Monocytes (%) (Auto) 5.0 0.0-12.0 % Eosinophils (%) (Auto) 0.4 0.0-7.0 % Basophils (%) (Auto) 0.8 0.0-2.0 % Neutrophils # (Auto) 7.1 1.6-8.6 10 ^3/uL Lymphocytes # (Auto) 1.3 0.4-5.4 10 ^3/uL Monocytes # (Auto) 0.4 0-1.3 10 ^3/uL Eosinophils # (Auto) 0 0-0.8 10 ^3/uL Basophils # (Auto) 0.1 0-0.2 10 ^3/uL Nucleated Red Blood Cells 0.0 % Sodium Level 140 136-145 mmol/L Potassium Level 4.4 3.5-5.1 mmol/L Chloride Level 102 98-107 mmol/L Carbon Dioxide Level 29 20-31 mmol/L Anion Gap 9 5-15 Blood Urea Nitrogen 12 9-23 mg/dL Creatinine 1.11 0.700-1.30 mg/dL Glomerular Filtration Rate Calc 79 >90 mL/min BUN/Creatinine Ratio 10.8 10.0-20.0 Serum Glucose 158 H 74-106 mg/dL Calcium Level 9.2 8.7-10.4 mg/dL Total Bilirubin 1.6 H 0.2-1.0 mg/dL Aspartate Amino Transferase (AST) 628 H 13-40 U/L Alanine Aminotransferase (ALT) 603 H 7-40 U/L Alkaline Phosphatase 243 H 46-116 U/L Total Protein 6.9 5.7-8.2 g/dL Albumin 4.4 3.2-4.8 g/dL Lipase 27 12-53 U/L Current Medications Medications (Trade) Dose Ordered Sig/Concetta Route Start Time Stop Time Status Last Admin Morphine Sulfate 2 mg ONCE ONCE IV 12/07/24 01:45 12/07/24 01:46 DC 12/07/24 06:02 Ondansetron HCl (Zofran) 4 mg ONCE ONCE IV 12/07/24 01:45 12/07/24 01:46 DC 12/07/24 06:01 Time of 1ST Reevaluation: 02:05 Reevaluation 1ST: Unchanged Patient Education/Counseling: Diagnosis, Treatment, Need For Follow Up Family Education/Counseling: No Family Present SEPSIS Sepsis Screen Date sepsis recognized/suspect: Dec 07, 2024 Time Sepsis recognized/suspect: 0121 Recent Procedure: No On Antibiotic Therapy: No Respiratory Rate >20: No Heart Rate >90: No Temp<36 C (96.8 F) or >38.3 C: No SBP <90 or MAP <65 mmHG: No New Acute Mental Status Change: No Is the patient on CPAP, BIPAP,: No Vital Signs Date Time Temp Pulse Resp B/P (MAP) Pulse Ox O2 Delivery O2 Flow Rate FiO2 12/07/24 06:32 76 12 123/72 12/07/24 06:02 92 16 132/74 12/07/24 05:50 98.0 92 18 132/74 (93) 96 98.0 12/07/24 01:12 98.6 83 16 115/69 97 98.6 Laboratory Tests Test 12/07/24 01:46 White Blood Count 8.9 10^3/uL (4.4-10.8) Departure 1 Departure Time of Disposition: 01:43 Impression: Primary Impression: Surgical complication Disposition: 09 ADMITTED INPATIENT Condition: Stable Comments 54 M s/p cholecystectomy with RUQ pain and increased LFTs after drain removal. Dr. Quispe discussed with surgeon at [facility] and will see patient on admission. Critical Care Note Critical Care Time?: No Stability Stability form required: No Heart Score Heart Score: Heart Score Response (Comments) Value History N/A 0 EKG N/A 0 Age N/A 0 Risk Factors N/A 0 Troponin N/A 0 Total 0 I personally scribed for RENA MOSER MD ([email or web address]) on 12/07/24 at 01:40. Electronically submitted by Saleem Burton ([email or web address]). RENA MOSER MD Dec 07, 2024 01:40
[2024-12-07 01:55] LABS: Hematocrit 41.1 % (41.0-53.0); Hemoglobin 14.2 g/dL (13.5-17.5); Mean Corpuscular Hemoglobin 31.3 pg (28.0-32.0); Mean Corpuscular Volume 90.5 fL (80.0-100.0); Nucleated Red Blood Cells % 0.0 %
[2024-12-07 02:19] LABS: Alanine Aminotransferase 603 U/L (7-40); Albumin 4.4 g/dL (3.2-4.8); Alkaline Phosphatase 243 U/L (46-116); Anion Gap 9 (5-15); BUN/Creatinine Ratio 10.8 (10.0-20.0); Bilirubin, Total 1.6 mg/dL (0.2-1.0); Blood Urea Nitrogen 12 mg/dL (9-23); Calcium 9.2 mg/dL (8.7-10.4); Carbon Dioxide 29 mmol/L (20-31); Chloride 102 mmol/L (98-107); Glucose 158 mg/dL (74-106); Lipase 27 U/L (12-53); Potassium 4.4 mmol/L (3.5-5.1); Sodium 140 mmol/L (136-145); Total Protein 6.9 g/dL (5.7-8.2)
[2024-12-07] MEDS: ONDANSETRON HCL 4 MG/2 ML VIAL IV ONE (06:01)
[2024-12-07] MEDS: MORPHINE SULFATE INJ 2 MG/ml SYRG IV ONE (06:02)
[2024-12-07] MEDS ORDERED: ACETAMINOPHEN 325 MG TAB PO PRN (08:45)
[2024-12-07] MEDS ORDERED: HYDROcodone-ACET 5/325MG TAB PO PRN (08:45)
[2024-12-07] MEDS ORDERED: DEXTROSE (50%) 50ML SYRG IV PRN (08:45)
[2024-12-07] MEDS ORDERED: DOCUSATE SOD 100 MG CAP PO PRN (08:45)
--- NOTE | 2024-12-07 09:03 | DVHHP2 ---
History of Present Illness Reason for Visit: Abdominal pain History of Present Illness Jules Altamirano is a 54-year-old male with past medical history of diabetes, hyperlipidemia, GERD, and depression who came to the hospital for abdominal pain. Patient had a LAP Carlota about [address] Best here. He was sent home with a drain. He came in yesterday and had the drain removed. After the drain was removed he began experiencing severe abdominal pain. He went to [facility] [place] [facility]. He had test completed that showed a possible bile leak, and he was transferred back to this facility. Cardiovascular: hyperipidemia GI: GERD Psych: Depression Endocrine: Diabetes Past Surgical History: Cholecystectomy Smoke: No ALCOHOL: none Lives: with Family Domestic Violence: Neg Review of Systems Constitutional: No: Fever, Chills, Sweats, Weakness, Malaise, Other Eyes: No: Pain, Vision change, Conjunctivae inflammation, Eyelid inflammation, Other, Redness ENT: No: Ear pain, Ear discharge, Nose pain, Nose discharge, Nose congestion, Mouth pain, Mouth swelling, Throat pain, Throat swelling, Other Respiratory: No: Cough, Dry, Shortness of breath, SOB with excertion, Wheezing, Hemoptysis, Pleuritic Pain, Sputum, Wheezing, Other Cardiovascular: No: Chest Pain, Palpitations, Orthopnea, Paroxysmal Noc. Dyspnea, Edema, Lt Headedness, Other Gastrointestinal: Nausea, Vomiting, Abdominal Pain; No: Diarrhea, Constipation, Melena, Hematochezia, Other Genitourinary: No Dysuria, No Frequency, No Incontinence, No Hematuria, No Retention, No Other Musculoskeletal: No: other, neck pain, shoulder pain, arm pain, back pain, hand pain, leg pain, foot pain Skin: No: Rash, Lesions, Jaundice, Bruising, Other Neurological: No: Weakness, Numbness, Incoordination, Change in speech, Confusion, Seizures, Other Allergies: Coded Allergies: Cefazolin (Verified Allergy, Mild, 11/17/24) ITCHING AND BURNING THROUGHOUT BODY Exam Vital Signs Vital Signs Date Time Temp Pulse Resp B/P (MAP) Pulse Ox O2 Delivery O2 Flow Rate FiO2 12/07/24 06:32 76 12 123/72 12/07/24 05:50 98.0 96 98.0 General Appearance: Alert, Oriented X3, Cooperative, No acute distress HEENT: Atraumatic, PERRLA, Other (Mucous meembr dry) Respiratory: Clear to auscultation, Normal air movement Cardiovascular: Regular rate, Normal S1, Normal S2, No murmurs Abdominal: Normal bowel sounds, Other (Pain on palpitation, firm at surgical site) Extremities: No clubbing, No cyanosis, No edema, Normal pulses Skin: No rashes, No breakdown, No significant lesion Neuro: Normal gait, Normal speech, Strength at 5/5 X4 ext, Normal tone Psych/Mental Status: Mental status NL, Mood NL Labs/Xrays Labs Test 12/07/24 01:46 Range/Units White Blood Count 8.9 4.4-10.8 10^3/uL Red Blood Count 4.54 4.5-5.90 10^6/uL Hemoglobin 14.2 13.5-17.5 g/dL Hematocrit 41.1 41.0-53.0 % Mean Corpuscular Volume 90.5 80.0-100.0 fL Mean Corpuscular Hemoglobin 31.3 28.0-32.0 pg Mean Corpuscular Hemoglobin Concent 34.5 32.0-36.0 g/dL Red Cell Distribution Width 13.3 11.8-14.3 % Platelet Count 320 140-450 10^3/uL Mean Platelet Volume 7.3 6.9-10.8 fL Neutrophils (%) (Auto) 79.6 37.0-80.0 % Lymphocytes (%) (Auto) 14.2 10.0-50.0 % Monocytes (%) (Auto) 5.0 0.0-12.0 % Eosinophils (%) (Auto) 0.4 0.0-7.0 % Basophils (%) (Auto) 0.8 0.0-2.0 % Neutrophils # (Auto) 7.1 1.6-8.6 10 ^3/uL Lymphocytes # (Auto) 1.3 0.4-5.4 10 ^3/uL Monocytes # (Auto) 0.4 0-1.3 10 ^3/uL Eosinophils # (Auto) 0 0-0.8 10 ^3/uL Basophils # (Auto) 0.1 0-0.2 10 ^3/uL Nucleated Red Blood Cells 0.0 % Sodium Level 140 136-145 mmol/L Potassium Level 4.4 3.5-5.1 mmol/L Chloride Level 102 98-107 mmol/L Carbon Dioxide Level 29 20-31 mmol/L Anion Gap 9 5-15 Blood Urea Nitrogen 12 9-23 mg/dL Creatinine 1.11 0.700-1.30 mg/dL Glomerular Filtration Rate Calc 79 >90 mL/min BUN/Creatinine Ratio 10.8 10.0-20.0 Serum Glucose 158 H 74-106 mg/dL Calcium Level 9.2 8.7-10.4 mg/dL Total Bilirubin 1.6 H 0.2-1.0 mg/dL Aspartate Amino Transferase (AST) 628 H 13-40 U/L Alanine Aminotransferase (ALT) 603 H 7-40 U/L Alkaline Phosphatase 243 H 46-116 U/L Total Protein 6.9 5.7-8.2 g/dL Albumin 4.4 3.2-4.8 g/dL Lipase 27 12-53 U/L SEPSIS Sepsis Screen Date sepsis recognized/suspect: Dec 07, 2024 Time Sepsis recognized/suspect: 012 Recent Procedure: No On Antibiotic Therapy: No Respiratory Rate >20: No Heart Rate >90: No Temp<36 C (96.8 F) or >38.3 C: No SBP <90 or MAP <65 mmHG: No New Acute Mental Status Change: No Is the patient on CPAP, BIPAP,: No Physician Orders Admit (12/07/24 08:44) Code Status (12/07/24 08:44) Hydrocodone-Acet 5/325mg Tab ([place] 5/32 (12/07/24 08:45) Ondansetron Hcl (Zofran) (12/07/24 08:45) Docusate Sodium Capsule (Colace Capsule) (12/07/24 08:45) Complete Blood Count (12/08/24 04:00) Comprehensive Metabolic Panel (12/08/24 04:00) Condition: Serious (12/07/24 08:44) Acetaminophen Tablet (Tylenol Tablet) (12/07/24 08:45) Morphine Sulfate Injection (12/07/24 08:45) Nm Hida Scan (12/07/24 08:44) Mrcp Mri (12/07/24 08:44) Glucose Blood (Accu-Chek Comfort Curve T (12/07/24 11:30) Bedtime Insulin Scale (12/07/24 22:00) Moderate Insulin Ss (12/07/24 11:30) Vital Signs Date Time Temp Pulse Resp B/P (MAP) Pulse Ox O2 Delivery O2 Flow Rate FiO2 12/07/24 06:32 76 12 123/72 12/07/24 06:02 92 16 132/74 12/07/24 05:50 98.0 92 18 132/74 (93) 96 98.0 12/07/24 01:12 98.6 83 16 115/69 97 98.6 Laboratory Tests Test 12/07/24 01:46 White Blood Count 8.9 10^3/uL (4.4-10.8) Medications Medications Dose Ordered Sig/Concetta Route Start Time Stop Time Status Last Admin Dose Admin Morphine Sulfate 2 mg ONCE ONCE IV 12/07/24 01:45 12/07/24 01:46 DC 12/07/24 06:02 2 MG Ondansetron HCl 4 mg ONCE ONCE IV 12/07/24 01:45 12/07/24 01:46 DC 12/07/24 06:01 4 MG Assessment/Plan Assessment/Plan Assessment: Surgical complication, transaminitis, Diabetes, Hyperlipidemia, Depression, GERD, Plan: Admit to Med-Surg, Surgical consult, MRCP, HIDA scan, NPO, IV hydration, Accu checks Q AC&HS with sliding scale, Home medications reconciled, Statin held due to liver function, Plan discussed with: Patient My Orders Orders - KAYLA MONTENEGRO CORPORATE GIVING MANAGER Procedure Category Date Status Time Admit ADMIT 12/07/24 Verified 08:44 Code Status CODE 12/07/24 Verified 08:44 Hydrocodone-Acet PHA 12/07/24 Verified 5/325mg Tab ([place] 08:45 Ondansetron Hcl PHA 12/07/24 Verified (Zofran) 08:45 Docusate Sodium PHA 12/07/24 Verified Capsule (Colace 08:45 Complete Blood Count LAB 12/08/24 Verified 04:00 Comprehensive LAB 12/08/24 Verified Metabolic Panel 04:00 Condition: Serious SAMARA 12/07/24 Verified 08:44 Acetaminophen Tablet PHA 12/07/24 Verified (Tylenol Tablet) 08:45 Morphine Sulfate PHA 12/07/24 Verified Injection 08:45 Nm Hida Scan NM 12/07/24 Verified 08:44 Mrcp Mri MRI 12/07/24 Verified 08:44 Glucose Blood PHA 12/07/24 Verified (Accu-Chek Comfort 11:30 Bedtime Insulin Scale PHA 12/07/24 Verified 22:00 Moderate Insulin Ss PHA 12/07/24 Verified 11:30 Date of Service: Dec 07, 2024 Billing Provider: KAYLA MONTENEGRO Common Visit Codes: [id number] INP/OBS CARE (MOD) KAYLA MONTENEGRO Dec 07, 2024 09:03
[2024-12-07] MEDS ORDERED: PATIENTS OWN MEDICATION (Simvastatin 1 TAB) PO SCH (10:00)
--- NOTE | 2024-12-07 10:13 | DVH ---
CLINICAL INFORMATION: Pain status post laparoscopic cholecystectomy 3 weeks ago. TECHNIQUE: Multisequence multiplanar MRI images of the abdomen were obtained without IV contrast. Anni sarah T2-weighted MRCP images were obtained. 3D MRCP images were created. COMPARISON: None. FINDINGS: Postsurgical changes of recent cholecystectomy. There is a small amount of free fluid adjac ent to the gallbladder fossa, liver, and extending along the right pericolic gutter, likely secondary to the recent surgery. Common bile duct measures up to 6 mm in diameter, within normal limits. No ma ss or filling defect identified in the common bile duct on MRCP images. Pancreatic duct appears tanner l. The liver, spleen, pancreas, and adrenal glands are grossly unremarkable. Small amount of perinep hric fluid is seen bilaterally. No hydronephrosis. No abdominal aortic aneurysm. IMPRESSION: 1. Postsurgical changes of recent cholecystectomy. Small amount of free fluid adjacent to the gallbl adder fossa, liver, and extending along the right pericolic gutter, may be residual postoperative flu id. Correlate with clinical findings. If there is clinical suspicion for bile leak, nuclear medicine hepatobiliary scan could be obtained. 2. No biliary ductal dilatation. No filling defect or stricture identified in the common bile duct o n MRCP. 3. Additional findings as described above.
--- NOTE | 2024-12-07 12:23 | DVH ---
Procedure: NM NM HIDA SCAN Exam Date: 12/07/2024 10:53 AM Clinical History: Pain S/P LAP Carlota 3 weeks ago Comparison Study: None Nuclear Medicine Hepatobiliary Scan. Technique: Following the intravenous administration of 6 mCi of technetium 99m labeled Choletec multiple planar abdominal planar images were obtained in anterior projection in 5 minute intervals for45 minutes . Ri ght lateral images were obtained at 45 minutes after injection. Findings: The liver appears grossly normal in size. There is no abnormal persistence of the cardiac or blood po ol activity. There is excretion of activity into the small bowel. Impression: No findings to suggest biliary leak.
[2024-12-07] MEDS: SODIUM CHLORIDE 0.9% 1,000 ML IV SCH (13:04)
[2024-12-07] MEDS: ACCU-CHEK COMFORT CURVE STRIP VI SCH (13:09)
[2024-12-07] MEDS: CHOLECALCIFEROL (VITD3) 1,000UNIT=25mCg TAB PO SCH (13:15)
[2024-12-07] MEDS: FAMOTIDINE 20 MG TAB PO SCH (13:15)
[2024-12-07] MEDS: SODIUM CHLORIDE 0.9% 1,000 ML IV ONE (13:15)
[2024-12-07] MEDS: InsuLIN REG 1unit/0.01ml Soln (100units/ml) SC SCH ×2 (13:15→22:00)
[2024-12-07] MEDS: MORPHINE SULFATE INJ 2 MG/ml SYRG IV PRN (13:16)
[2024-12-07] MEDS: ONDANSETRON HCL 4 MG/2 ML VIAL IV PRN (13:19)
[2024-12-07] MEDS: PREGABALIN 25 MG CAP PO SCH (13:43)
--- NOTE | 2024-12-07 15:58 | DVHPN2 ---
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 Noticed elevated transaminases. MRCP with no collections. surgical consult placed physical exam AOX4 uncomfortable ctab s1 s2 rrr abdomen soft, voluntary guarding, wound clean no le edema labs ekg imaging reviewed assessment and plan NIDDM HTN s/p lap inna with abdominal pain transaminitis surg eval trend LFT NPO bile leak could be post op changes pain management ISS resume home meds diet NPO but meds dvt ppx hold full code Plan discussed with: Patient Date of Service: Dec 07, 2024 Billing Provider: TATA MORAN MD Common Visit Codes: [id number] INP/OBS CARE(HIGH) TATA MORAN MD Dec 07, 2024 15:58
[2024-12-07 22:44] VITALS: BP 136/77; PULSE 91; RESP 22; TEMP 100.1; O2SAT 96
[2024-12-08 04:39] LABS: Hematocrit 36.8 % (41.0-53.0); Hemoglobin 12.9 g/dL (13.5-17.5); Mean Corpuscular Hemoglobin 32.0 pg (28.0-32.0); Mean Corpuscular Volume 91.1 fL (80.0-100.0); Nucleated Red Blood Cells % 0.1 %
[2024-12-08 04:51] LABS: Albumin 4.2 g/dL (3.2-4.8); Anion Gap 10 (5-15); BUN/Creatinine Ratio 10.5 (10.0-20.0); Bilirubin, Total 0.7 mg/dL (0.2-1.0); Blood Urea Nitrogen 11 mg/dL (9-23); Calcium 9.4 mg/dL (8.7-10.4); Carbon Dioxide 25 mmol/L (20-31); Chloride 103 mmol/L (98-107); Potassium 4.2 mmol/L (3.5-5.1); Sodium 138 mmol/L (136-145); Total Protein 6.7 g/dL (5.7-8.2)
[2024-12-08 04:54] LABS: Alanine Aminotransferase 306 U/L (7-40); Alkaline Phosphatase 158 U/L (46-116); Glucose 114 mg/dL (74-106)
[2024-12-08 05:15] VITALS: BP 125/79; PULSE 85; RESP 16; TEMP 98.6; O2SAT 95
[2024-12-08 09:00] VITALS: BP 133/78; PULSE 87; RESP 18; TEMP 99.2; O2SAT 99
--- NOTE | 2024-12-08 11:27 | DVHPN2 ---
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 Noticed elevated transaminases. MRCP with no collections. surgical consult placed seen today, stomach soft. still on and off pain. transaminases improved significantly. pending surg notes, spoke with srgery, no drainable pocket. physical exam AOX4 uncomfortable ctab s1 s2 rrr abdomen soft, voluntary guarding, wound clean no le edema labs ekg imaging reviewed assessment and plan NIDDM HTN s/p lap inna with abdominal pain transaminitis surg eval trend LFT NPO bile leak could be post op changes pain management ISS resume home meds diet advance as tolerated dvt ppx hold full code Plan discussed with: Patient My Orders Orders - TATA MORAN MD Procedure Category Date Status Time Clear Liq Diet DIET 12/08/24 Transmitted Lunch Date of Service: Dec 08, 2024 Billing Provider: TATA MORAN MD Common Visit Codes: [id number] INP/OBS CARE(HIGH) TATA MORAN MD Dec 08, 2024 11:27
[2024-12-08 12:46] VITALS: BP 147/88; PULSE 82; RESP 17; TEMP 98.3; O2SAT 99
[2024-12-08 15:02] VITALS: BP 145/85; PULSE 80; RESP 16
--- NOTE | 2024-12-08 15:46 | DVHINCON2 ---
Date of service: Dec 08, 2024 Family History: Diabetes mellitus G8 MOTHER G8 FATHER Allergies: Coded Allergies: Cefazolin (Verified Allergy, Mild, 11/17/24) ITCHING AND BURNING THROUGHOUT BODY Home Meds Active Scripts Tramadol HCl (Tramadol HCl) 50 Mg Tab, 50 MG PO TIDP PRN for 6 Days, #18 TAB Prov:TOMI STOCK MD 11/17/24 Docusate Sodium (Colace) 100 Mg Cap, 1 CAP PO BID PRN for 15 Days, #30 CAP Prov:TOMI STOCK MD 11/17/24 Levofloxacin Hemihydrate (LEVAQUIN 500 MG) 500 Mg Tab, 500 MG PO DAILY for 5 Days, #5 TAB Prov:TOMI STOCK MD 11/17/24 Reported Medications Tramadol Hcl (Tramadol Hcl) 50 Mg Tab, 50 MG PO PRN, TAB 11/15/24 Baclofen (Baclofen) 20 Mg Tab, 10 MG PO TID, TAB 11/15/24 Cholecalciferol (D3) 50 Mcg Cap, 50 MCG PO DAILY, CAP 11/15/24 Famotidine (Gnp Acid Certified Ophthalmic Technologist Maximum) 20 Mg Tab, 40 MG PO DAILY, TAB 11/15/24 Pregabalin (Lyrica) 50 Mg Cap, 1 CAP PO TID, #90 CAP 11/15/24 Discontinued Reported Medications Simvastatin (Simvastatin) 10 Mg Tab, 1 TAB PO DAILY, #90 TAB 3 Refills 11/15/24 Trazodone Hcl (Trazodone Hcl) 100 Mg Tab, 50 MG PO HS, TAB 11/15/24 Metformin Hydrochloride (Metformin Hcl) 850 Mg Tab, 850 MG PO DAILY, TAB 11/15/24 Current Medications Current Medications Medications (Trade) Dose Ordered Sig/Concetta Route PRN Reason Start Time Stop Time Status Last Admin Insulin Human Regular (InsuLIN R) HS SC 12/07/24 22:00 Vital Signs Vital Signs Date Time Temp Pulse Resp B/P (MAP) Pulse Ox O2 Delivery O2 Flow Rate FiO2 12/08/24 14:32 82 17 147/88 12/08/24 12:46 98.3 99 98.3 12/07/24 22:46 Room Air* 0 21 Labs/Diagnostic Data Labs Test 12/08/24 12:06 12/08/24 03:50 12/07/24 01:46 Range/Units POC Glucose 125 H 70-106 mg/dl White Blood Count 9.2 4.4-10.8 10^3/uL Red Blood Count 4.04 L 4.5-5.90 10^6/uL Hemoglobin 12.9 L 13.5-17.5 g/dL Hematocrit 36.8 #L 41.0-53.0 % Mean Corpuscular Volume 91.1 80.0-100.0 fL Mean Corpuscular Hemoglobin 32.0 28.0-32.0 pg Mean Corpuscular Hemoglobin Concent 35.1 32.0-36.0 g/dL Red Cell Distribution Width 13.1 11.8-14.3 % Platelet Count 288 140-450 10^3/uL Mean Platelet Volume 7.9 6.9-10.8 fL Neutrophils (%) (Auto) 83.6 H 37.0-80.0 % Lymphocytes (%) (Auto) 9.9 L 10.0-50.0 % Monocytes (%) (Auto) 5.4 0.0-12.0 % Eosinophils (%) (Auto) 0.6 0.0-7.0 % Basophils (%) (Auto) 0.5 0.0-2.0 % Neutrophils # (Auto) 7.7 1.6-8.6 10 ^3/uL Lymphocytes # (Auto) 0.9 0.4-5.4 10 ^3/uL Monocytes # (Auto) 0.5 0-1.3 10 ^3/uL Eosinophils # (Auto) 0.1 0-0.8 10 ^3/uL Basophils # (Auto) 0 0-0.2 10 ^3/uL Nucleated Red Blood Cells 0.1 % Sodium Level 138 136-145 mmol/L Potassium Level 4.2 3.5-5.1 mmol/L Chloride Level 103 98-107 mmol/L Carbon Dioxide Level 25 20-31 mmol/L Anion Gap 10 5-15 Blood Urea Nitrogen 11 9-23 mg/dL Creatinine 1.05 0.700-1.30 mg/dL Glomerular Filtration Rate Calc 84 >90 mL/min BUN/Creatinine Ratio 10.5 10.0-20.0 Serum Glucose 114 H 74-106 mg/dL Calcium Level 9.4 8.7-10.4 mg/dL Total Bilirubin 0.7 0.2-1.0 mg/dL Aspartate Amino Transferase (AST) 81 H 13-40 U/L Alanine Aminotransferase (ALT) 306 H 7-40 U/L Alkaline Phosphatase 158 H 46-116 U/L Total Protein 6.7 5.7-8.2 g/dL Albumin 4.2 3.2-4.8 g/dL Lipase 27 12-53 U/L Assessment [id number] C/O RUQ PAIN S/P LAP CHOLECYSTECTOMY BY DR HUNTER 3 WEEKS AGO TRANSFERRED [facility] FOR POSSIBLE BILE LEAK DRAIN REMOVED RECENTLY HIDA SCAN NO BILE LEAK WOUNDS HEALING WELL PAIN RESOLVED REJI DIET CLEARED FOR DISCHARGE REFERRED BACK TO DR HUNTER FOR POSTOPERATIVE FOLLOW UP PT AGREES WITH THE PLAN Plan discussed with: Patient GHAZALA LEDEZMA MD Dec 08, 2024 15:46
--- NOTE | 2024-12-08 16:29 | DVHINCON2 ---
DATE OF CONSULTATION: 12/08/2024 HISTORY OF PRESENT ILLNESS: This patient is 54 years old, coming with right upper quadrant pain. Now, the pain is resolved. He recently had a laparoscopic cholecystectomy about [address] Wray and he was sent home with a drain. He came back yesterday and had the drain removed and then he came back because he was having abdominal pain. He was worked up. He went to [facility] as well and there was a concern about a possible bile leak and he was referred back here. HIDA scan came back negative for a bile leak. Currently, the pain is resolved and no nausea or vomiting. He is on a clear liquid diet, tolerating it. PAST MEDICAL HISTORY: Diabetes. PAST SURGICAL HISTORY: As mentioned above. PHYSICAL EXAMINATION: VITAL SIGNS: Afebrile. Stable signs. HEENT: With no evidence of pallor, cyanosis, or jaundice. NECK: Supple and nontender, with no thyromegaly or lymphadenopathy. CHEST AND LUNGS: Clear. HEART: Within normal limits. ABDOMEN: Soft. Wounds are healed. Nontender. LABORATORY DATA: Liver enzymes are elevated, but trending down. CLINICAL IMPRESSION: The patient does not have an acute surgical condition that would necessitate acute surgical intervention and he feels comfortable being discharged and my recommendation is to have him follow up with Dr. Wray for his postoperative management. MD BLAIR Marion/DILMA TID: [id number] RECEIPT: [id number] cc: Jonna Devlin NP, TATA MORAN
[2024-12-08] MEDS ORDERED: HYDR-4902 PO (17:54)
--- NOTE | 2024-12-08 18:00 | DVHDS2 ---
Discharge Summary Date of Admission Dec 07, 2024 at 08:44 Date of Discharge: Dec 08, 2024 Labs/Diagnostic Data: Laboratory Results Test 12/08/24 16:41 12/08/24 03:50 12/07/24 01:46 POC Glucose 181 mg/dl (70-106) White Blood Count 9.2 10^3/uL (4.4-10.8) Red Blood Count 4.04 10^6/uL (4.5-5.90) Hemoglobin 12.9 g/dL (13.5-17.5) Hematocrit 36.8 % (41.0-53.0) Mean Corpuscular Volume 91.1 fL (80.0-100.0) Mean Corpuscular Hemoglobin 32.0 pg (28.0-32.0) Mean Corpuscular Hemoglobin Concent 35.1 g/dL (32.0-36.0) Red Cell Distribution Width 13.1 % (11.8-14.3) Platelet Count 288 10^3/uL (140-450) Mean Platelet Volume 7.9 fL (6.9-10.8) Neutrophils (%) (Auto) 83.6 % (37.0-80.0) Lymphocytes (%) (Auto) 9.9 % (10.0-50.0) Monocytes (%) (Auto) 5.4 % (0.0-12.0) Eosinophils (%) (Auto) 0.6 % (0.0-7.0) Basophils (%) (Auto) 0.5 % (0.0-2.0) Neutrophils # (Auto) 7.7 10 ^3/uL (1.6-8.6) Lymphocytes # (Auto) 0.9 10 ^3/uL (0.4-5.4) Monocytes # (Auto) 0.5 10 ^3/uL (0-1.3) Eosinophils # (Auto) 0.1 10 ^3/uL (0-0.8) Basophils # (Auto) 0 10 ^3/uL (0-0.2) Nucleated Red Blood Cells 0.1 % Sodium Level 138 mmol/L (136-145) Potassium Level 4.2 mmol/L (3.5-5.1) Chloride Level 103 mmol/L (98-107) Carbon Dioxide Level 25 mmol/L (20-31) Anion Gap 10 (5-15) Blood Urea Nitrogen 11 mg/dL (9-23) Creatinine 1.05 mg/dL (0.700-1.30) Glomerular Filtration Rate Calc 84 mL/min (>90) BUN/Creatinine Ratio 10.5 (10.0-20.0) Serum Glucose 114 mg/dL (74-106) Calcium Level 9.4 mg/dL (8.7-10.4) Total Bilirubin 0.7 mg/dL (0.2-1.0) Aspartate Amino Transferase (AST) 81 U/L (13-40) Alanine Aminotransferase (ALT) 306 U/L (7-40) Alkaline Phosphatase 158 U/L (46-116) Total Protein 6.7 g/dL (5.7-8.2) Albumin 4.2 g/dL (3.2-4.8) Lipase 27 U/L (12-53) Other Laboratory Tests 12/08/24 03:50 Brief Hx & Hospital Course: 54 yo M with HTN and NIDDM, recent lap inna (11/25) 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 Noticed elevated transaminases. MRCP with no collections. surgical consult placed. stomach soft. still on and off pain. transaminases improved significantly. pending surg notes, spoke with philippe, no drainable pocket. stable to dc home, tolerating diet. need follow up with surgery outpatient Condition at Discharge: Good Final Diagnosis/Problems List interactible pain Discharge Disposition: Home Discharge Instruct/Medications Diet: Cardiac 2g Na,low cholest Activity: No Restrictions, As Tolerated Follow Up/Referral: follow up with surgery Scheduled Baclofen (Baclofen), 10 MG PO TID, (Reported) Cholecalciferol (D3), 50 MCG PO DAILY, (Reported) Famotidine (Gnp Acid Machine Programmer Maximum), 40 MG PO DAILY, (Reported) Levofloxacin Hemihydrate (Levaquin 500 Mg), 500 MG PO DAILY Pregabalin (Lyrica), 1 CAP PO TID, (Reported) Tramadol Hcl (Tramadol Hcl), 50 MG PO PRN, (Reported) Scheduled PRN Docusate Sodium (Colace), 1 CAP PO BID PRN Hydrocodone-Acetaminophen (Hydrocodone Bitartrate/AC 5-325 mg), 1 TAB PO Q8HP PRN Tramadol HCl (Tramadol HCl), 50 MG PO TIDP PRN Discontinued Medications Metformin Hydrochloride (Metformin Hcl), 850 MG PO DAILY, (Reported) Simvastatin (Simvastatin), 1 TAB PO DAILY, (Reported) Trazodone Hcl (Trazodone Hcl), 50 MG PO HS, (Reported) Discharge Statement: "Patient was advised to return to the ER or call 911 if any headaches, dizziness, shortness of breath, chest pain, abdominal pain, bleeding, fevers, or worsening of medical condition. Patient was counseled about treatment plan, medications, possible side effects, patientverbalized understanding. All questions were answered to the best of my ability. This discharge took greater then 30 minutes in planning, reviewing documentation, counseling the patient, and discussing with other team members." ASSESSMENT ASSESSMENT Assessment NIDDM HTN s/p lap inna with abdominal pain transaminitis Date of Service: Dec 08, 2024 Billing Provider: TATA MORAN MD Common Visit Codes: 02960-QXD/OBS DISCH DAY >30min TATA MORAN MD Dec 08, 2024 18:00
[2024-12-08 18:22] VITALS: TEMP 36.8
[2024-12-09 10:18] LABS: Hepatitis B Surface Antigen Negative (Negative)
[2024-12-09 10:25] LABS: Hepatitis C Antibody Negative (Negative)
[2024-12-10] MEDS ORDERED: HYDR1TAB97 PO (10:21)
== END 2024-12-08 18:49 | disposition home or self-care (01) | DRG 252 ==
LOC: EDUNIT# 00:59 → ER 00:59 → EDBD 00:59 → OVERFLOW 08:44
PROVIDERS: ADMIT Student in an Organized Health Care Education/Training Program; ATTEND Student in an Organized Health Care Education/Training Program
DX: K91.89 Other postprocedural complications and disorders of digestive system (principal); E11.9 Type 2 diabetes mellitus without complications; I10 Essential (primary) hypertension; F32.A Depression, unspecified; K80.20 Calculus of gallbladder without cholecystitis without obstruction; E78.5 Hyperlipidemia, unspecified; K21.9 Gastro-esophageal reflux disease without esophagitis; R74.01 Elevation of levels of liver transaminase levels; Z88.8 Allergy status to other drugs, medicaments and biological substances; Z88.1 Allergy status to other antibiotic agents; Z83.3 Family history of diabetes mellitus; Z79.84 Long term (current) use of oral hypoglycemic drugs; Z90.49 Acquired absence of other specified parts of digestive tract; Y83.8 Other surgical procedures as the cause of abnormal reaction of the patient, or of later complication, without mention of misadventure at the time of the procedure; Y82.8 Other medical devices associated with adverse incidents; Z79.899 Other long term (current) drug therapy
CPT/HCPCS: 36415; 74181; 78226; 80053; 82962; 83690; 85025; 86803; 87340; 96374; 96375; G0378; J1815; J2405